=== PATIENT | male | born 1965 | race Two or more races ===

== ENCOUNTER 2024-12-24 10:18 | Inpatient (IN) | payer MEDICAID, SELFPAY ==
[2024-12-24] VITALS (11 sets, daily range): BP systolic 132–189; BP diastolic 74–119; PULSE 81–106; RESP 16–22; TEMP 36.2–37.1; O2SAT 92–99; BMI 32.3; BMI 34.7
--- NOTE | 2024-12-24 12:26 | XR_ITS ---
Examination: CT abdomen with intravenous contrast CT pelvis with intravenous contrast 2-D coronal reconstructions 2-D sagittal reconstructions Date and time of exam:December 24, 2024 1413 hours INDICATIONS: Right upper abdominal pain onset today. CTDI: vol (mGy) 10.3 DLP: (mGycm) 733 Technique: Multiple axial sections of the abdomen and pelvis have been obtained. 64 slice high-resolution scanner used. 3 mm axial sections have been obtained, post intravenous injection 60 cc [id number] 2-D sagittal, coronal reconstructions obtained. Low dose protocols were performed. One or more of the following dose reduction techniques were used; automated exposure control, adjustment of the mA and/or KV according to patient size, use of iterative reconstruction technique. Findings: No focal liver or splenic lesions Multiple gallstones Gallbladder wall appears thickened and edematous No pancreatic or adrenal mass No renal or ureteral calculi, no hydronephrosis Aorta normal size Normal appendix No bowel obstruction No bladder mass or bladder calculi Mild prostatomegaly Advanced degenerative disc disease L5-S1 IMPRESSION: Acute calculus cholecystitis
--- NOTE | 2024-12-24 12:27 | EDNOTE_ITS ---
ED Abdominal Pain RME/HPI General Chief Complaint: Abdominal Pain Stated complaint: RUQ ABD PAIN X 5 DAYS Time seen by provider: 12/24/24 12:40 Arrival date/time: 12/24/24 10:18 Source: patient Limitations: no limitations RME / HPI RME / HPI narrative: Patient is a 59-year-old male with a 6-day history of right side abdominal pain and distention. He has had no vomiting or diarrhea. No fevers or chills. No changes in urination. He states he has a history of hypertension no other chronic disease. Denies any history of diabetes. No sick contacts or recent antibiotic use. No recent traveling. Related Data Home Medications ?Medication ?Instructions ?Recorded ?Confirmed moxifloxacin 0.5 % eye drops 1 drp Both eyes QDAY 12/0312/26/24 Held on 12/26/24. Instructions: Doctor's Order prednisolone acetate 1 % eye 1 drp ophthalmic (eye) Q1 2H 12/25/24 12/26/24 drops,suspension Held on 12/26/24. Instructions: Doctor's Order amlodipine 5 mg tablet 5 mg PO QDAY 12/26/24 Previous Rx's ?Medication ?Instructions ?Recorded pantoprazole 40 mg tablet,delayed 40 mg PO QDAY #30 ta bs 11/11/18 release (Protonix) Allergies Allergy/AdvReac Type Severity Reaction Status Date / Time No Known Allergies Allergy Verified 12/24/24 21:32 Review of Systems Review of Systems Systems Reviewed: All systems reviewed, normal except as documented ED Exam General Limitations: Present no limitations General appearance: Present alert and in no apparent distress Head Head exam: Present atraumatic Eye Eye exam: Present normal appearance, PERRL and EOMI ENT ENT exam: Present normal exam, normal oropharynx and mucous membranes moist Neck Neck exam: Present normal inspection, full ROM and trachea midline Chest Chest inspection: Present normal inspection and symmetric chest wall rise Respiratory Respiratory exam: Present normal lung sounds bilaterally Cardiovascular Cardiovascular exam: Present regular rate, normal rhythm and normal heart sounds Abdominal Exam Abdominal exam: Present soft, distention and tenderness; Absent guarding or rebound Extremities Exam Extremities exam: Present normal inspection and full ROM Back Exam Back exam: Present normal inspection and full ROM Neurological Exam Neurological exam: Present alert and oriented X3 Psychiatric Psychiatric exam: Present normal affect and normal mood Skin Skin exam: Present warm, dry, intact and normal color Course Course Course Narrative: CT report was reviewed and there are concerns for acute cholecystitis. Dr. Ramirez with general surgery was contacted and asked to consult on the patient. He will see the patient in the ER. Quality Measures none Orders Category Date Time Status Admit to Inpatient Status Routine Admission 12/24/24 22:59 Active Patient Condition Routine Admission 12/24/24 17:27 Ordered Ambulate in [place] on 2nd Day Routine Care 12/24/24 22:59 Ordered Bed to Chair in A.M. Routine Care 12/24/24 22:59 Ordered COVID-19 Screening Questionnaire NOW Care 12/24/24 17:[address] Screening NOW Care 12/24/24 12:[address] Screening X1 Care 12/24/24 12:26 Completed Decision to Admit X1 Care 12/24/24 17:03 Completed Ice Chips NEEDED Care 12/24/24 22:59 Active Incentive Spirometry Treatment .q2h w/a Care 12/24/24 22:59 Completed Insert IV NOW Care 12/24/24 13:22 Completed Intake and Output Routine Care 12/24/24 22:59 Ordered Measure Drain Output QSHIFT Care 12/24/24 22:59 Completed Obtain Written Consent For: NOW Care 12/24/24 17:27 Completed Sequential Compression Device QSHIFT Care 12/24/24 22:59 Active Turn, Cough, and Deep Breathe NOW Care 12/24/24 22:[address] abdomen pelvis w con Stat Exams 12/24/24 12:26 Completed US abdomen limited Stat Exams 12/24/24 12:28 Completed CBC AM DRAW Lab 12/25/24 04:44 Completed CBC Stat Lab 12/24/24 12:38 Completed CMP [Comprehensive Metabolic Panel] Stat Lab 12/24/24 12:38 Completed Electrolytes AM DRAW Lab 12/25/24 04:44 Completed Lactic Acid [Lactate (Lactic Acid)] Stat Lab 12/24/24 12:38 Completed Lipase Stat Lab 12/24/24 12:38 Completed Liver Panel AM DRAW Lab 12/25/24 04:44 Completed UA, C/S IF [Urinalysis, C/S if Indicated] Stat Lab 12/24/24 17:49 Completed Acetaminophen Ivpb [Ofirmev Inj] 100 ml Med 12/24/24 18:29 Discontinued IV .STK-MED Acetaminophen Tab [Tylenol Tab] Med 12/24/24 22:59 Discontinued 650 mg PO Q6HR PRN Bupivacaine Mpf/Epi 0.5% [Sensorcaine-Mpf Inj 0.5% w/ Med 12/24/24 18:14 Discontinued Epi] 30 ml .ROUTE .STK-MED ONE Dexamethasone Inj [Decadron Inj] Med 12/24/24 18:15 Discontinued 10 mg .ROUTE .STK-MED ONE Esmolol HCl [Brevibloc Inj] Med 12/24/24 19:46 Discontinued 100 mg .ROUTE .STK-MED ONE Glycopyrrolate Inj [Robinul Inj] Med 12/24/24 20:56 Discontinued 1 mg .ROUTE .STK-MED ONE Ketorolac Inj [Toradol Inj] Med 12/24/24 22:59 Active 30 mg IVP Q6HR PRN Lidocaine Inj Pf 2% 2 ml [Xylocaine Inj Pf Inj 2% 2 ml] Med 12/24/24 18:29 Discontinued 2 ml .ROUTE .STK-MED ONE Meperidine Inj [Demerol Inj] Med 12/24/24 21:10 Discontinued 12.5 mg IVP Q5M PRN Metoprolol Tartrate Inj [Lopressor Inj] Med 12/24/24 21:10 Discontinued 1 mg IVP Q5M PRN Midazolam Inj [Versed Inj] Med 12/24/24 21:10 Discontinued 1 mg IVP Q5M PRN Morphine Inj Med 12/24/24 21:10 Discontinued 2 mg IVP Q10M PRN Morphine Inj Med 12/24/24 12:26 Discontinued 2 mg IVP X1 ONE Morphine Inj Med 12/24/24 22:59 Active 5 mg IVP Q4HR PRN Neostigmine Inj 1:1000 [Bloxiverz Inj 1:1000] Med 12/24/24 20:56 Discontinued 10 ml .ROUTE .STK-MED ONE Ondansetron Inj [Zofran Inj] Med 12/24/24 21:01 Discontinued 4 mg .ROUTE .STK-MED ONE Ondansetron Inj [Zofran Inj] Med 12/24/24 22:59 Active 4 mg IVP Q4HR PRN Ondansetron Inj [Zofran Inj] Med 12/24/24 21:10 Discontinued 4 mg IVP X1 PRN PHENYLEPHRINE INJ in NS [Chuy-synephrine Inj/Ns] Med 12/24/24 18:58 Discontinued 1,000 mcg .ROUTE .STK-MED ONE Piper/Tazo 3.375 gm Premix [Zosyn] Med 12/24/24 23:15 Active 3.375 gm in 50 ml IV Q8HR Piper/Tazo Inj [Zosyn Inj] 4.5 gm Med 12/24/24 17:30 Discontinued Sodium Chloride 0.9% (Pop) [NS 0.9% mini bag] 100 ml IV X1 Propofol Inj [Diprivan Inj] Med 12/24/24 18:15 Discontinued 200 mg IV .STK-MED ONE Rocuronium Inj [Zemuron Inj] Med 12/24/24 18:15 Discontinued 100 mg .ROUTE .STK-MED ONE Sodium Chloride 0.9% 1000 ml [Ns] 1,000 ml Med 12/24/24 22:59 Hold IV 125 mls/hr Sodium Chloride 0.9% 1000 ml [Ns] 1,000 ml Med 12/24/24 17:30 Discontinued IV 500 mls/hr Sodium Chloride 0.9% 1000 ml [Ns] 1,000 ml Med 12/24/24 17:34 Discontinued IV 999 mls/hr Vasopressin Inj [Vasostrict Inj] Med 12/24/24 19:19 Discontinued 20 unit .ROUTE .STK-MED ONE ePHEDrine SULF INJ Med 12/24/24 19:28 Discontinued 50 mg .ROUTE .STK-MED ONE fentaNYL INJ [Sublimaze Inj] Med 12/24/24 18:15 Discontinued 100 mcg .ROUTE .STK-MED ONE fentaNYL INJ [Sublimaze Inj] Med 12/24/24 19:13 Discontinued 100 mcg .ROUTE .STK-MED ONE fentaNYL INJ [Sublimaze Inj] Med 12/24/24 20:55 Discontinued 100 mcg .ROUTE .STK-MED ONE fentaNYL INJ [Sublimaze Inj] Med 12/24/24 21:10 Discontinued 50 mcg IVP Q5M PRN hydrALAZINE INJ [Apresoline Inj] Med 12/24/24 21:10 Discontinued 5 mg IVP Q20M PRN Code Status Routine Oth 12/24/24 17:27 Ordered EKG (RT) Stat RT 12/24/24 17:27 Draft Oxygen Delivery PRN RT 12/24/24 21:10 Active Transfer Order Routine Transfer 12/24/24 21:23 Completed Vital Signs Vital signs: Vital Signs Temperature 98.3 F 12/24/24 10:30 Pulse Rate 106 H 12/24/24 10:30 Respiratory Rate 18 12/24/24 10:30 Blood Pressure 189/119 H 12/24/24 10:30 Pulse Oximetry (%) 97 12/24/24 10:30 Oxygen Delivery Method Room Air 12/24/24 10:30 Abdominal Pain MDM MDM Narrative MDM Narrative:: Patient is a 59-year-old male with a 6-day history of right side abdominal pain and distention. He has had no vomiting or diarrhea. No fevers or chills. No changes in urination. He states he has a history of hypertension no other chronic disease. Denies any history of diabetes. No sick contacts or recent antibiotic use. No recent traveling. On exam patient is nontoxic-appearing and in no visible signs of distress. Vital signs are stable. He does have abdominal distention with diffuse tympany. There is mild tenderness diffusely. There is no guarding or masses. No peritoneal signs are present. Imaging indicates patient has acute cholecystitis. Patient was admitted to general surgery who took the patient to the operating room. Patient data External records reviewed:: None Clinical information provided by:: patient Social determinants that could affect healthcare access:: none Patient has the following chronic illnesses:: Hypertension How is presenting disease/condition affected by chronic disease/condition?: exacerbated by Evaluation data The following diagnostics were reviewed and interpreted by me:: lab results (No leukocytosis or anemia. AST is elevated at 40, ALT is 73, alk phos is unremarkable. Lipase is unremarkable. Urinalysis is unremarkable.) and radiology exam(s) (CT of the abdomen and ultrasound are concerning for possible cholecystitis.) Lab and/or radiology exams considered but not ordered:: n/a Interpretation Summary: Hypertension, cholecystitis Medications / Prescriptions Medications or Prescriptions considered but not ordered:: n/a Medication administrations:: Medication Administration History Acetaminophen (Acetaminophen 325 Mg Tablet) 650 mg PO Q6HR PRN PRN Reason: FEVER>101.5 Stop: 01/23/25 22:58 Amlodipine Besylate (Amlodipine Besylate 5 Mg Tablet) 10 mg PO QDAY SHASTA Stop: 01/26/25 08:59 Last Admin: 12/27/24 08:38 Dose: 10 mg Documented By: DEBRA Sodium Chloride (Ns) 1,000 mls @ 125 mls/hr IV .Q8H SHASTA Stop: 01/23/25 22:58 Last Admin: 12/26/24 06:20 Dose: 125 mls/hr Documented By: Infusion: 12/26/24 06:00 Dose: Infused Documented By: Admin: 12/25/24 22:00 Dose: 125 mls/hr Documented By: Infusion: 12/25/24 22:00 Dose: Infused Documented By: Admin: 12/25/24 14:25 Dose: 125 mls/hr Documented By: Infusion: 12/25/24 14:25 Dose: Infused Documented By: Admin: 12/25/24 06:26 Dose: 125 mls/hr Documented By: Infusion: 12/25/24 06:26 Dose: Infused Documented By: Admin: 12/24/24 23:25 Dose: 125 mls/hr Documented By: JOSHUA Piperacillin/Tazobactam/Dextrose (Zosyn) 3.375 gm in 50 mls @ 12.5 mls/hr IV Q8HR SHASTA; Protocol Stop: 12/31/24 23:14 Last Admin: 12/27/24 05:08 Dose: 12.5 mls/hr Documented By: Infusion: 12/27/24 02:13 Dose: Infused Documented By: Admin: 12/26/24 22:13 Dose: 12.5 mls/hr Documented By: Infusion: 12/26/24 18:57 Dose: Infused Documented By: Admin: 12/26/24 14:57 Dose: 12.5 mls/hr Documented By: Infusion: 12/26/24 09:19 Dose: Infused Documented By: Admin: 12/26/24 05:19 Dose: 12.5 mls/hr Documented By: Infusion: 12/26/24 01:50 Dose: Infused Documented By: Admin: 12/25/24 21:50 Dose: 12.5 mls/hr Documented By: Infusion: 12/25/24 18:22 Dose: Infused Documented By: Admin: 12/25/24 14:22 Dose: 12.5 mls/hr Documented By: Infusion: 12/25/24 09:13 Dose: Infused Documented By: Admin: 12/25/24 05:13 Dose: 12.5 mls/hr Documented By: Infusion: 12/25/24 03:25 Dose: Infused Documented By: Admin: 12/24/24 23:25 Dose: 12.5 mls/hr Documented By: JOSHUA Dextrose/Sodium Chloride (D5-Ns) 1,000 mls @ 80 mls/hr IV .[id number] [facility] Stop: 01/25/25 11:14 Last Admin: 12/27/24 02:33 Dose: 80 mls/hr Documented By: Infusion: 12/27/24 02:33 Dose: Infused Documented By: Admin: 12/26/24 15:03 Dose: 80 mls/hr Documented By: Ketorolac Tromethamine (Ketorolac Inj 30 Mg/Ml Vial) 30 mg IVP Q6HR PRN; Protocol PRN Reason: PAIN 1-6 (mild-mod Stop: 12/29/24 22:58 Last Admin: 12/26/24 05:17 Dose: 30 mg Documented By: SAMANTHA Morphine Sulfate (Morphine Sulf Inj 10 Mg/Ml Vial) 5 mg IVP Q4HR PRN; Protocol PRN Reason: PAIN SCALE 4-6 (Moderate Stop: 12/29/24 22:58 Last Admin: 12/25/24 17:01 Dose: 5 mg Documented By: Ondansetron HCl (Ondansetron Inj 2 Mg/Ml Inj 2 Ml) 4 mg IVP Q4HR PRN PRN Reason: NAUSEA OR VOMITING Stop: 01/23/25 22:58 Last Admin: 12/25/24 16:55 Dose: 4 mg Documented By: Discontinued Medications Acetaminophen (Acetaminophen 325 Mg Tablet) 650 mg PO Q6HR PRN PRN Reason: [id number] Stop: 01/23/25 22:58 Amlodipine Besylate (Amlodipine Besylate 5 Mg Tablet) 5 mg PO QDAY [facility] Stop: 01/25/25 08:59 Last Admin: 12/26/24 08:47 Dose: 5 mg Documented By: Amlodipine Besylate (Amlodipine Besylate 2.5 Mg Tablet) 2.5 mg PO X1 ONE Stop: 12/26/24 12:00 Last Admin: 12/26/24 12:29 Dose: 2.5 mg Documented By: Amlodipine Besylate (Amlodipine Besylate 2.5 Mg Tablet) 2.5 mg PO X1 ONE Stop: 12/26/24 20:19 Last Admin: 12/26/24 20:31 Dose: 2.5 mg Documented By: GUANAKO Amlodipine Besylate (Amlodipine Besylate 5 Mg Tablet) 5 mg PO BID SHASTA Stop: 01/26/25 08:59 Bupivacaine HCl/Epinephrine Bitart (Bupivacaine Mpf/Epi 0.5% 30 Ml Vial 1:200,000) Confirm Administered Dose 30 ml .ROUTE .STK-MED ONE Stop: 12/24/24 18:15 Dexamethasone Sodium Phosphate (Dexamethasone Sod Phos Inj 10 Mg/Ml Vial) Confirm Administered Dose 10 mg .ROUTE .STK-MED ONE Stop: 12/24/24 18:16 Ephedrine Sulfate (Ephedrine Sulf Inj 50 Mg/Ml Vial) Confirm Administered Dose 50 mg .ROUTE .STK-MED ONE Stop: 12/24/24 19:29 Esmolol HCl (Esmolol Inj 10 Mg/Ml Vial 10 Ml) Confirm Administered Dose 100 mg .ROUTE .STK-MED ONE Stop: 12/24/24 19:47 Fentanyl Citrate (Fentanyl Cit Inj 50 Mcg/Ml Amp 2ml) Confirm Administered Dose 100 mcg .ROUTE .STK-MED ONE Stop: 12/24/24 18:16 Fentanyl Citrate (Fentanyl Cit Inj 50 Mcg/Ml Amp 2ml) Confirm Administered Dose 100 mcg .ROUTE .STK-MED ONE Stop: 12/24/24 19:14 Fentanyl Citrate (Fentanyl Cit Inj 50 Mcg/Ml Amp 2ml) Confirm Administered Dose 100 mcg .ROUTE .STK-MED ONE Stop: 12/24/24 20:56 Fentanyl Citrate (Fentanyl Cit Inj 50 Mcg/Ml Amp 2ml) 50 mcg IVP Q5M PRN PRN Reason: PAIN SCALE 4-10(Mod-Sev Last Admin: 12/24/24 21:57 Dose: 50 mcg Documented By: FERNANDA Glycopyrrolate (Glycopyrrolate Inj 0.2 Mg/Ml Vial 5 Ml) Confirm Administered Dose 1 mg .ROUTE .STK-MED ONE Stop: 12/24/24 20:57 Hydralazine HCl (Hydralazine Inj 20 Mg/Ml Vial) 5 mg IVP Q20M PRN PRN Reason: SEE COMMENTS Sodium Chloride (Ns) 1,000 mls @ 500 mls/hr IV .Q2H SHASTA Stop: 01/23/25 17:29 Piperacillin Sod/Tazobactam (Sod 4.5 gm/ Sodium Chloride) 100 mls @ 200 mls/hr IV X1 ONE Stop: 12/24/24 17:59 Last Admin: 12/24/24 17:42 Dose: 200 mls/hr Documented By: DB Sodium Chloride (Ns) 1,000 mls @ 999 mls/hr IV .Q1H1M ONE Stop: 12/24/24 18:34 Last Admin: 12/24/24 17:43 Dose: 999 mls/hr Documented By: JUANA Acetaminophen (Ofirmev Inj) Confirm Administered Dose 100 mls @ ud IV .STK-MED ONE Stop: 12/24/24 18:30 Labetalol HCl (Labetalol Inj 5 Mg/Ml Vial 20 Ml) 10 mg IVP X1 ONE Stop: 12/26/24 05:05 Lidocaine HCl (Lidocaine Inj Pf 2% 2 Ml Vial) Confirm Administered Dose 2 ml .ROUTE .STK-MED ONE Stop: 12/24/24 18:30 Meperidine HCl (Meperidine Inj 50 Mg/Ml Vial) 12.5 mg IVP Q5M PRN PRN Reason: SHIVERING Stop: 12/29/24 21:09 Metoprolol Tartrate (Metoprolol Tartrate Inj 1 Mg/Ml Amp 5 Ml) 1 mg IVP Q5M PRN PRN Reason: TACHYCARDIA Stop: 12/25/24 21:09 Midazolam HCl (Midazolam Inj 1 Mg/Ml Vial 2 Ml) 1 mg IVP Q5M PRN PRN Reason: ANXIETY Stop: 12/25/24 21:09 Morphine Sulfate (Morphine Sulf Inj 10 Mg/Ml Vial) 2 mg IVP X1 ONE Stop: 12/24/24 12:27 Last Admin: 12/24/24 13:21 Dose: 2 mg Documented By: JUANA Morphine Sulfate (Morphine Sulf Inj 10 Mg/Ml Vial) 2 mg IVP Q10M PRN PRN Reason: PAIN SCALE 4-10(Mod-Sev Neostigmine Methylsulfate (Neostigmine Inj 1:1000 10 Ml Vial) Confirm Administered Dose 10 ml .ROUTE .STK-MED ONE Stop: 12/24/24 20:57 Ondansetron HCl (Ondansetron Inj 2 Mg/Ml Inj 2 Ml) Confirm Administered Dose 4 mg .ROUTE .STK-MED ONE Stop: 12/24/24 21:02 Ondansetron HCl (Ondansetron Inj 2 Mg/Ml Inj 2 Ml) 4 mg IVP X1 PRN PRN Reason: NAUSEA OR VOMITING Phenylephrine HCl (Phenylephrine Inj In Ns 100 Mcg/Ml 10 Ml Syringe) Confirm Administered Dose 1,000 mcg .ROUTE .STK-MED ONE Stop: 12/24/24 18:59 Propofol (Propofol Inj 10 Mg/Ml Vial 20 Ml) Confirm Administered Dose 200 mg IV .STK-MED ONE Stop: 12/24/24 18:16 Rocuronium Hagerman (Rocuronium Inj 10 Mg/Ml Vial 10 Ml) Confirm Administered Dose 100 mg .ROUTE .STK-MED ONE Stop: 12/24/24 18:16 Vasopressin (Vasopressin Inj 20 Unit/Ml Vial) Confirm Administered Dose 20 unit .ROUTE .STK-MED ONE Stop: 12/24/24 19:20 See above Consultations Consultation(s) initiated? (list below): Yes Diagnosis Differential diagnosis abdominal pain: calculus of kidney, gastroenteritis, pancreatitis and small bowel obstruction Most likely diagnosis given after review of the tests above:: Acute cholecystitis Admission Indicated Admission indicated?: indicated Admission Request Was there a request for admission?: Yes Admission Attestation Admission request attestation: Discussed case with [] from Hospitalist service regarding admission. Discussed patients ED course, exam findings, labs, and radiology results. The Hospitalist [agrees,declines] to accept the patient for admission. Disposition Plan Disposition Plan: Admit Discharge Plan Plan Patient Disposition: Other Care w/in Hosp ([facility]) Problem List Clinical Impression: Acute cholecystitis
--- NOTE | 2024-12-24 12:28 | XR_ITS ---
Examination: Abdomen sonogram, Limited Date and time of exam: December 24, 2024 1236 hours INDICATIONS: Right upper abdominal pain beginning 5 days ago Technique: Real-time moseley scale transabdominal sonographic images of the upper abdomen obtained. Findings: Multiple gallstones Gallbladder wall 0.50 cm Common bile duct 0.3 cm Pancreatic head 3.4 cm Liver 13.7 cm fatty infiltration no focal liver lesions Normal hepatopedal portal venous flow Patent IVC IMPRESSION: Cholelithiasis Abnormally thickened gallbladder wall 0.50 cm Consider HIDA scan or MRCP follow-up to exclude cystic duct obstruction
[2024-12-24 13:01] LABS: Lactate (Lactic Acid) 1.7 mMol/L (0.4-2.0)
[2024-12-24 13:06] LABS: Basophils # (Auto) 0.1 Thou/mm3 (0.0-0.2); Basophils % (Auto) 1 % (0-2.5); Eosinophils # (Auto) 0.1 Thou/mm3 (0.0-0.5); Eosinophils % (Auto) 1 % (0-10); Hematocrit 43.9 % (41.0-53.0); Hemoglobin 15.3 g/dL (13.5-16.0); Immature Granulocytes Auto 0.09 Thou/mm3 (0.00-0.00); Lymphocytes # (Auto) 1.7 Thou/mm3 (1.0-4.8); Lymphocytes % (Auto) 17 % (10-50); Mean Corpuscular HGB Conc 34.9 g/dl (31.0-37.0); Mean Corpuscular Hemoglobin 29.1 pg (25.0-35.0); Mean Corpuscular Volume 84 fL (80-100); Monocytes # (Auto) 0.8 Thou/mm3 (0.0-0.8); Monocytes % (Auto) 7 % (0-12); Neutrophils # (Auto) 7.6 Thou/mm3 (1.8-7.7); Neutrophils % (Auto) 73 % (37-80); Nucleated Red Blood Cell # 0.00 Thou/mm3 (0.00-0.00); Nucleated Red Blood Cell % 0 /100 WBC (0); Platelet Count 245 Thou/mm3 (140-440); RDW Standard Deviation 39.8 fL (35.1-43.9); Red Blood Count 5.26 Miln/mm3 (4.50-5.90); White Blood Count 10.4 Thou/mm3 (3.8-10.6)
[2024-12-24] MEDS: MORPHINE SULF INJ 10 MG/ML VIAL 2 MG IVP (13:21)
[2024-12-24 13:25] LABS: Alanine Aminotransferase 73 U/L (10-49); Albumin, Serum 4.5 gm/dL (3.4-4.8); Albumin/Globulin Ratio 1.5 (1.2-2.2); Alkaline Phosphatase 101 U/L (46-116); Anion Gap 10 (7-16); Aspartate Amino Transferase 40 U/L (0-34); BUN/Creatinine Ratio 16 Ratio (12-20); Bilirubin,Total 0.6 mg/dL (0.3-1.2); Blood Urea Nitrogen 14 mg/dL (9-23); Calcium 9.1 mg/dL (8.3-10.6); Calcium (Corrected) 9.1 mg/dL (8.5-10.1); Carbon Dioxide 27.2 mMol/L (20.0-31.0); Chloride 101 mMol/L (98-107); Creatinine (Component) 0.9 mg/dL (0.6-1.3); Estimated Creatinine Clearance 103.2 mL/min (>60); Globulin 3.0 gm/dL (2.3-3.5); Glucose 105 mg/dL (74-106); Lipase 36 U/L (12-53); Osmolality,Calculated 276 (275-295); Potassium 4.1 mMol/L (3.4-5.1); Sodium 138 mMol/L (136-145); Total Protein 7.5 gm/dL (5.7-8.2); eGFR > 60 See Note
--- NOTE | 2024-12-24 17:27 | EKG_ITS ---
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
[2024-12-24] MEDS: PIPER/TAZO INJ 4.5 GM in SODIUM CHLORIDE 0.9% (POP) 100 ML IV (17:42)
[2024-12-24] MEDS: SODIUM CHLORIDE 0.9% 1000 ML 1,000 ML 999 ML IV (17:43)
[2024-12-24 17:57] LABS: Collection Type, Urine Voided
[2024-12-24 18:03] LABS: Bilirubin,Urine Negative (Negative); Blood,Urine Negative (Negative); Clarity,Urine Clear (Clear/Hazy); Color,Urine Lt-Yellow (Lt Yel-Yel); Culture Indicated,Urine Not Indicated; Glucose, Urine Negative (Negative); Ketones,Urine Negative (Negative); Leukocyte Esterase,Urine Positive (Negative); Nitrite,Urine Negative (Negative); PH,Urine 7.5 (5.0-7.0); Protein,Urine Negative (Neg - Trace); RBC,Urine 6 /hpf (0-3); Squamous Epithelial Cell,Urine 1 /hpf (0-5); Urobilinogen,Urine Negative mg/dL (0.0-1.0); WBC,Urine 4 /hpf (0-5)
[2024-12-24 18:07] LABS: Specific Gravity,Urine > 1.035 (1.001-1.035)
--- NOTE | 2024-12-24 18:52 | ESHP_ITS ---
HPI Date of Admission 12/24/24 17:27 Chief Complaint Chief Complaint: The patient is admitted with the complaints of acute calculus cholecystitis HPI History of present illness revealed that the patient was in his usual health until a week ago when he started having pain over the right side of the abdomen. He denies any vomiting but is not been feeling good. But he has been working and does not bother to see a doctor. He does not go to your doctor. He has history of hypertension. Because of the increasing pain he came to the emergency room and was found to have acute cholecystitis with cholelithiasis. Patient denies any major medical problems in the past and has been reasonably healthy. He lives alone. He denies any history of fever or jaundice or chills. He has noticed a diarrhea in the past few days. Per surgery consent of some eye surgery probably cataract Past Medical History Past Medical History CARDIAC: Positive Hypertension; Negative Cardiac Disorders or Congestive Heart Failure RESPIRATORY: Negative Chronic Obstructive Pulmonary Disease (COPD) or Asthma GENITOURINARY: Negative Renal Disease ENDOCRINE: Negative Diabetes Mellitus Type 1 or Diabetes Mellitus Type 2 HEMATOLOGIC: Negative Sickle Cell Disease Social History SMOKING STATUS: Former smoker Meds Home Medications and Allergies Allergies Allergy/AdvReac Type Severity Reaction Status Date / Time No Known Allergies Allergy Verified 12/24/24 10:21 Exam Vital Signs Temp Pulse Resp BP Pulse Ox O2 Del Method 98.7 F 81 18 152/93 H 97 Room Air 12/24/24 16:05 12/24/24 16:05 12/24/24 16:05 12/24/24 16:05 12/24/24 16:05 12/24/24 16:05 Narrative Exam Physical examination revealed an obese male who speaks some Georgian. He is 5 foot 10 inches tall weighing 225 pounds with BMI of 32.3. His vital signs are normal Constitutional Constitutional: moderate distress Routine Abdominal Exam Comments: Examination abdomen showed a definite tenderness over the right upper quadrant. Patient's abdomen is protuberant because of his obesity. Patient has a positive Sauer sign Routine Rectal Exam Comments: Deferred Routine Exam Comments: Deferred Routine Extremities Exam Comments: Within normal limits Routine Skin Exam Comments: Within normal limits Results Results: Laboratory Laboratory Narrative: Patient's laboratory workup showed normal WBC and normal liver enzymes with mild elevation Results: Imaging Imaging narrative: CT scan of the abdomen showed acute cholecystitis. The gallbladder wall is thickened and edematous ultrasound confirmed cholelithiasis. The gallbladder wall measures 5 mm. Additional studies: Impression: Acute calculus cholecystitis Hypertension Obesity Assessment & Plan Additional Assessment Additional comments: Impression: Acute calculus cholecystitis Hypertension Obesity Plan Plan: Patient has the following signs for acute cholecystitis: #1 he has edematous gallbladder that is distended on the CT scan #2 gallbladder wall is thickened to 5 mm on the ultrasound but stones #3 considerable clinical tenderness over the right upper quadrant with a positive Sauer sign. Because of these conditions I advised laparoscopic cholecystectomy or open cholecystectomy. The risk of the procedure was discussed with the patient and his daughters and they mentioned that he can have a bleeding injury to the bile duct or bile leakage from the liver surface etc. patient also may require open cholecystectomy in case the laparoscopic approach fails. They understand and wants to go with surgery which is planned tonight. Quality Measures Quality Measures VTE prophylaxis
--- NOTE | 2024-12-24 20:47 | SUR.OPER ---
2045: Call placed to jamaica Yaneli to provide update.
--- NOTE | 2024-12-24 21:27 | SUR.PHASEI ---
received pt and report from Dr. Peterson and RN Ángela. IV intact no s/s of infiltration. Dressing x4 to abd w/ 2x2 gauze w/ medipore tape w/ a 19F LEONORA drain. no drainage noted to drain at this time. abdomen distended
--- NOTE | 2024-12-24 21:28 | PD.SUROPNT ---
Date of Procedure 12/24/24 Pre Op Diagnosis Acute calculus cholecystitis Post Op Diagnosis Same with extensive inflammation and adhesion Procedure Laparoscopic cholecystectomy Findings Patient was found to have a multiple gallstones which were packing the gallbladder which was very much inflamed and showed extensive thickening of the gallbladder wall Procedure Description After endotracheal anesthesia was given the patient was placed in supine position and the abdomen was prepped with chloroprep solution and draped in a sterile manner. After time out was performed I injected a few cc of of half percent Marcaine with epinephrine below the umbilicus and I made an incision for about 3 cm in length. The fascia was cleaned and Veress needle was inserted to create a pneumoperitoneum up to 15 mmHg. Then introduced a 12 mm trocar and a 10 mm camera through the fascia and I inspected the intra-abdominal organs as well as the gallbladder and the liver. Another 5 mm trocar was inserted in the epigastric region under direct vision after injecting some local anesthesia. At this time the patient was kept in reverse Trendelenburg position with the left lateral tilt. The third 5 mm trocar was inserted over the mid axillary line under direct vision and a Corby and Jackie grasper was used to hold the fundus of the gallbladder gallbladder was distended and it was aspirated some bile before it could be grasped.. The retraction was carried out by the golf player assistant moving the fundus of the gallbladder towards the right shoulder of the patient to create enough traction. I placed a another 5 mm trocar in the midaxillary line just lateral to the rectus muscle under direct vision. I used a fenestrated grasper to retract the neck of the gallbladder laterally towards the patient's right hip. critical view of safety could not be identified because of the extensive inflammation. After dissecting the neck of the gallbladder I was able to see the cystic duct which appeared normal and clipped and doubly. I changed the 5 mm trocar in the epigastric region to 10 mm port and applied a large clip applicator to secure this. Then I realized removal of the gallbladder from the liver bed would be extremely hazardous due to extensive inflammation and bleeding. I decided to open the gallbladder and remove all the stones one by one which was a laborious procedure. This way I avoided dissection of the gallbladder bed. There was extensive inflammation and bleeding all around the dissection. I left the posterior wall of the gallbladder intact. I removed all the stones and debris's and did a basically subtotal cholecystectomy except for the posterior wall of the gallbladder. The common duct was not seen distally but no dissection was carried out around the duct. The cystic duct was clipped doubly and then divided a Then the gallbladder was removed from the liver bed using Harmonic fredy to control the small blood vessels as the dissection proceeded. There was an arterial bleeding from the gallbladder wall which probably is what the cystic artery was. This was clipped doubly then the portion of the gallbladder was and dissected out using harmonic fredy. Then the gallbladder bed was coagulated with cautery gallbladder and the mucosa the liver bed was coagulated with cautery to obtain satisfactory hemostasis. I applied both Surgicel and Surgicel powder to obtain hemostasis because of fair amount of bleeding that I encountered. I also left a #19 Tamazight Jona-Varner under the liver and brought it out through the trocar site and anchored to the skin with 2-0 silk. The trocars were pulled out from the abdominal cavity and the fascia at the umbilical incision was closed with interrupted 0 Ethibond. The epigastric incision also was closed with 0 Ethibond. Subcutaneous tissues was closed with 3-0 chromic and injected a few cc of half percent Marcaine with epinephrine and the skin was closed with interrupted 4-0 nylon stitches at all the trocar sites. Dressing was applied with 2 x 2 and Tegaderm. Patient tolerated the procedure well and returned to recovery room in stable condition. Anesthesia GETA Pathology / specimen Other (Gallbladder and the stones) IVF Infused 1,200 Estimated Blood Loss 300 Condition Stable Disposition PACU Surgeon Deb Ramirez MD Surgical Staff Operation Date: 12/24/24 19:15 Case Staff Anesthesiologist: Grabiel Peterson RNcustomer facilities supervisor: Vivi Hidalgo
--- NOTE | 2024-12-24 21:50 | SUR.PHASEI ---
pt c/o 12/11 pain, no distress noted, vss.
[2024-12-24] MEDS: fentaNYL CIT INJ 50 mCg/ML AMP 2ML IVP (21:57)
--- NOTE | 2024-12-24 22:04 | SUR.PHASEI ---
pt resting, no distress noted, pt arousable to voice, vss, dressing remains CDI, iv intact, no s/s of infiltration noted. report given to BRIANNE Singleton
[2024-12-24] MEDS: SODIUM CHLORIDE 0.9% 1000 ML 1,000 ML 125 ML IV (23:25)
[2024-12-24] MEDS: PIPER/TAZO 3.375 GM PREMIX 3.375 GM/50 ML BAG IV (23:25)
[2024-12-25] VITALS (9 sets, daily range): BP systolic 127–163; BP diastolic 72–97; PULSE 74–93; RESP 16–20; TEMP 36.1–36.9; O2SAT 91–98
[2024-12-25] MEDS: PIPER/TAZO 3.375 GM PREMIX 3.375 GM/50 ML BAG IV ×3 (05:13→21:50)
[2024-12-25] MEDS: SODIUM CHLORIDE 0.9% 1000 ML 1,000 ML 125 ML IV ×3 (06:26→22:00)
[2024-12-25 06:27] LABS: Basophils # (Auto) 0.0 Thou/mm3 (0.0-0.2); Basophils % (Auto) 0 % (0-2.5); Eosinophils # (Auto) 0.0 Thou/mm3 (0.0-0.5); Eosinophils % (Auto) 0 % (0-10); Hematocrit 39.3 % (41.0-53.0); Hemoglobin 13.4 g/dL (13.5-16.0); Immature Granulocytes Auto 0.11 Thou/mm3 (0.00-0.00); Lymphocytes # (Auto) 0.9 Thou/mm3 (1.0-4.8); Lymphocytes % (Auto) 9 % (10-50); Mean Corpuscular HGB Conc 34.1 g/dl (31.0-37.0); Mean Corpuscular Hemoglobin 29.4 pg (25.0-35.0); Mean Corpuscular Volume 86 fL (80-100); Monocytes # (Auto) 0.5 Thou/mm3 (0.0-0.8); Monocytes % (Auto) 6 % (0-12); Neutrophils # (Auto) 7.8 Thou/mm3 (1.8-7.7); Neutrophils % (Auto) 84 % (37-80); Nucleated Red Blood Cell # 0.00 Thou/mm3 (0.00-0.00); Nucleated Red Blood Cell % 0 /100 WBC (0); Platelet Count 261 Thou/mm3 (140-440); RDW Standard Deviation 41.4 fL (35.1-43.9); Red Blood Count 4.56 Miln/mm3 (4.50-5.90); White Blood Count 9.3 Thou/mm3 (3.8-10.6)
[2024-12-25 06:51] LABS: Alanine Aminotransferase 243 U/L (10-49); Albumin, Serum 3.9 gm/dL (3.4-4.8); Alkaline Phosphatase 214 U/L (46-116); Anion Gap 12 (7-16); Aspartate Amino Transferase 315 U/L (0-34); Bilirubin,Direct 1.5 mg/dL (0.0-0.3); Bilirubin,Total 2.2 mg/dL (0.3-1.2); Carbon Dioxide 24.3 mMol/L (20.0-31.0); Chloride 103 mMol/L (98-107); Potassium 4.4 mMol/L (3.4-5.1); Sodium 139 mMol/L (136-145); Total Protein 6.6 gm/dL (5.7-8.2)
--- NOTE | 2024-12-25 11:24 | ESPR_ITS ---
Documentation for date of: 12/25/24 Subjective Subjective Brief History: History of present illness revealed that the patient was in his usual health until a week ago when he started having pain over the right side of the abdomen. He denies any vomiting but is not been feeling good. But he has been working and does not bother to see a doctor. He does not go to your doctor. He has history of hypertension. Because of the increasing pain [facility] and was found to have acute cholecystitis with cholelithiasis. Patient denies any major medical problems in the past and has been reasonably healthy. He lives alone. He denies any history of fever or jaundice or chills. He has noticed a diarrhea in the past few days. Per surgery consent of some eye surgery probably cataract Narrative: The patient is doing reasonably well following difficult cholecystectomy for extensive inflammation Exam Vital Signs Temp Pulse Resp BP Pulse Ox O2 Del Method O2 Flow Rate 98.4 F 82 16 132/75 H 98 Nasal Cannula 2 12/25/24 07:45 12/25/24 07:45 12/25/24 07:45 12/25/24 07:45 12/25/24 07:45 12/25/24 07:45 12/25/24 07:45 His vital signs are normal Routine Abdominal Exam Comments: Abdominal examination is negative there is very minimal drainage in the Jona- Varner Results Results: Laboratory Laboratory Narrative: Patient's laboratory results show elevated bilirubin and transaminases possibly secondary to surgery or possible common bile duct stone Assessment & Plan Assessment Additional comments: Impression: Stable postoperative course following acute cholecystectomy Plan Plan: We shall watch see liver enzymes monitor at PROCEDURES: Procedures Laparoscopic cholecystectomy
--- NOTE | 2024-12-25 12:30 | PC.NURSE ---
extensive abdominal extension noted on pt made md Carver aware over the phone per MD will order xray to evaluate.
--- NOTE | 2024-12-25 12:58 | PC.SS ---
Patient Parker Conner is a 59 Year old male admitted for Acute Cholecystitis Requiring ABX. SS met with patient at bedside to discuss discharge plan and verify demographic information. Patient reports he lives at home alone. Patient reports his surrogate decision maker is his daughter, Keyonna Conner [phone]. Choice of pharmacy is [facility]. Patient reports he does not have a PCP. prior to being admitted patient did not utilize any source of DME, patient is able to complete all ADL's independently. At time of discharge patient will return back home, family will provide transportation. Next of kin: Daughter, Keyonna Conner [phone] Discharge Plan: Home
--- NOTE | 2024-12-25 15:16 | XR_ITS ---
Examination: Abdomen AP single view Technique: AP portable supine abdomen, single view Exam date and time: December 25, 2024 1530 hours INDICATIONS: Abdominal distention today. FINDINGS: Mildly air distended stomach Numerous air distended small bowel loops Surgical clips upper right abdomen IMPRESSION: Small bowel ileus versus early small bowel obstruction, clinical correlation advised
--- NOTE | 2024-12-25 16:53 | XR_ITS ---
Examination: AP chest single view Technique one AP portable upright chest single view Date and time: December 25, 2024, 1726 hours INDICATIONS: Post orogastric tube placement FINDINGS: Orogastric tube tip in stomach satisfactory position Mild to moderate enlargement left ventricle Fat-pad at the left cardiophrenic angle No pulmonary edema IMPRESSION: Orogastric tube tip in the stomach satisfactory position
[2024-12-25] MEDS: ONDANSETRON INJ 2 MG/ML INJ 2 ML 4 MG IVP (16:55)
[2024-12-25] MEDS: MORPHINE SULF INJ 10 MG/ML VIAL 5 MG IVP (17:01)
[2024-12-26] VITALS (12 sets, daily range): BP systolic 150–175; BP diastolic 89–110; PULSE 89–103; RESP 16–93; TEMP 36.1–37.1; O2SAT 92–97
[2024-12-26] MEDS: KETOROLAC INJ 30 MG/ML VIAL IVP (05:17)
[2024-12-26] MEDS: PIPER/TAZO 3.375 GM PREMIX 3.375 GM/50 ML BAG IV ×3 (05:19→22:13)
[2024-12-26] MEDS: SODIUM CHLORIDE 0.9% 1000 ML 1,000 ML 125 ML IV (06:20)
[2024-12-26 06:25] LABS: Basophils # (Auto) 0.1 Thou/mm3 (0.0-0.2); Basophils % (Auto) 1 % (0-2.5); Eosinophils # (Auto) 0.1 Thou/mm3 (0.0-0.5); Eosinophils % (Auto) 1 % (0-10); Hematocrit 39.1 % (41.0-53.0); Hemoglobin 12.9 g/dL (13.5-16.0); Immature Granulocytes Auto 0.24 Thou/mm3 (0.00-0.00); Lymphocytes # (Auto) 1.9 Thou/mm3 (1.0-4.8); Lymphocytes % (Auto) 20 % (10-50); Mean Corpuscular HGB Conc 33.0 g/dl (31.0-37.0); Mean Corpuscular Hemoglobin 29.0 pg (25.0-35.0); Mean Corpuscular Volume 88 fL (80-100); Monocytes # (Auto) 0.9 Thou/mm3 (0.0-0.8); Monocytes % (Auto) 10 % (0-12); Neutrophils # (Auto) 6.1 Thou/mm3 (1.8-7.7); Neutrophils % (Auto) 66 % (37-80); Nucleated Red Blood Cell # 0.00 Thou/mm3 (0.00-0.00); Nucleated Red Blood Cell % 0 /100 WBC (0); Platelet Count 281 Thou/mm3 (140-440); RDW Standard Deviation 43.4 fL (35.1-43.9); Red Blood Count 4.45 Miln/mm3 (4.50-5.90); White Blood Count 9.3 Thou/mm3 (3.8-10.6)
[2024-12-26 07:05] LABS: Alanine Aminotransferase 196 U/L (10-49); Albumin, Serum 3.8 gm/dL (3.4-4.8); Alkaline Phosphatase 197 U/L (46-116); Aspartate Amino Transferase 102 U/L (0-34); Bilirubin,Direct 0.3 mg/dL (0.0-0.3); Bilirubin,Total 0.7 mg/dL (0.3-1.2); Total Protein 6.5 gm/dL (5.7-8.2)
--- NOTE | 2024-12-26 07:07 | PC.NURSE ---
Addendum entered by Kathy Moscoso RN 12/26/24 07:20: 12/26/2024 0455 PAIN 6 OUT OF 0/10 AT TIME OF ELEVATED BP 12/26/2024 0645 PAIN IS 0 0/10 Original Note: 12/26/[address] VEGA MADE AWARE OF PATIENT BLOOD PRESSURE RANGING IN THE 150'S /170'S'S, INFORMED MD PATIENT IN PAIN 6 OUT 1/10 ON PAIN SCALE, NO NEW ORDERS AT THIS TIME, MD STATES HE WILL COME TO UNIT AND ASSESS PATIENT.
--- NOTE | 2024-12-26 08:06 | PC.NURSE ---
Notified MD Mueller of current adult consult by MD Carver for hypertension as well as current bp this morning of 175/103-93
--- NOTE | 2024-12-26 11:10 | PD.RESCONSUL ---
HPI Data of Consult Requesting Physician: Deb Ramirez MD Admitting Provider: Deb Ramirez MD Attending Provider: Deb Ramirez MD Primary Care Provider: Physician No Primary/Family Consult Narrative History of present illness: Parker Conner is a 59 yo male with PMHx of hypertension and prior cholecystitis who is s/p cholecystectomy POD 2 and is being hospitalized for recovery after surgery and regain of bowel function. Internal medicine team was consulted for the management of stage 2 hypertension. Per daughter, patient is on home amlodopine 5mg which takes his BP down quickly. Patient denies symptoms associated with hypertension including headaches, chest pain, palpitations, epistaxis, blurry vision, tinnitus, difficulty breathing. cc:: cc: Deb Ramirez MD Review of Systems Review of Systems Narrative Review of Systems: General: Alert and oriented x3, No apparent distress. Skin: Intact, Warm, no rashes. HEENT: Normocephalic, Atraumatic. Normal neck range of motion, Supple. Trachea midline. Respiratory: Lungs are clear to auscultation, Breath sounds are equal bilaterally with equal chest expansion. Cardiovascular: RRR, normal S1, S2, No murmurs. Distal pulses 2+ Abdomen: Abdomen distended, soft, without erythema, or lesions. Diminished bowel sounds. Percussion tympanic. Palpation nontender in all four quadrants. No organomagely. No guarding or rebound present. Musculoskeletal/Extremities: No erythema, swelling, tenderness of any joints. No edema of BLE. DP pulses +2/3 b/l. Full active ROM of all four extremities. Neurologic: NEURO: Oriented x3, cranial nerves II to XII grossly intact. Cerebellar exam (hqnclp-nj-guvd, vduw-dl-rmsg) intact. Muscle strength 5/5 on UE and LE b/l, Moves extremities x4. Sensation intact to gross touch along C6-T1 and L2-S1 dermatomes. No focal neurologic deficits noted Psych: Thoughts linear and responses appropriate. Exam Vital Signs Temp Pulse Resp BP Pulse Ox O2 Del Method O2 Flow Rate 97.0 F 95 20 175/103 H 95 Room Air 2 12/26/24 08:00 12/26/24 08:47 12/26/24 08:00 12/26/24 08:47 12/26/24 08:00 12/26/24 08:00 12/26/24 00:00 FiO2 88 12/26/24 00:00 Results Labs 12/28/24 05:40 12/28/24 05:40 Labs: Short CBC 12/26/24 Range/Units 04:37 WBC 9.3 (3.8-10.6) Thou/mm3 Hgb 12.9 L (13.5-16.0) g/dL Hct 39.1 L (41.0-53.0) % Plt Count 281 (140-440) Thou/mm3 Liver Function 12/26/24 Range/Units 04:37 Total Bilirubin 0.7 D (0.3-1.2) mg/dL Direct Bilirubin 0.3 (0.0-0.3) mg/dL AST 102 H (0-34) U/L ALT 196 H (10-49) U/L Alkaline Phosphatase 197 H (46-116) U/L Albumin 3.8 (3.4-4.8) gm/dL Quality Measures Quality Measures none Medications Home Medications and Allergies Home Medications ?Medication ?Instructions ?Recorded ?Confirmed ?Type moxifloxacin 0.5 % eye drops 1 drp Both eyes QDAY 12/25/24 12/26/24 History prednisolone acetate 1 % eye 1 drp ophthalmic (eye) Q12H 12/25/24 12/26/24 History drops,suspension amlodipine 5 mg tablet 5 mg PO QDAY 12/26/24 12/26/24 History Allergies Allergy/AdvReac Type Severity Reaction Status Date / Time No Known Allergies Allergy Verified 12/24/24 21:32 Visit Medications Acetaminophen (Acetaminophen 325 Mg Tablet) 650 mg PO Q6HR PRN PRN Reason: FEVER>101.5 Stop: 01/23/25 22:58 Amlodipine Besylate (Amlodipine Besylate 5 Mg Tablet) 5 mg PO QDAY SHASTA Stop: 01/25/25 08:59 Last Admin: 12/26/24 08:47 Dose: 5 mg Sodium Chloride (Ns) 1,000 mls @ 125 mls/hr IV .Q8H SHASTA Stop: 01/23/25 22:58 Last Admin: 12/26/24 06:20 Dose: 125 mls/hr Piperacillin/Tazobactam/Dextrose (Zosyn) 3.375 gm in 50 mls @ 12.5 mls/hr IV Q8HR SHASTA; Protocol Stop: 12/31/24 23:14 Last Admin: 12/26/24 05:19 Dose: 12.5 mls/hr Ketorolac Tromethamine (Ketorolac Inj 30 Mg/Ml Vial) 30 mg IVP Q6HR PRN; Protocol PRN Reason: PAIN 1-6 (mild-mod Stop: 12/29/24 22:58 Last Admin: 12/26/24 05:17 Dose: 30 mg Morphine Sulfate (Morphine Sulf Inj 10 Mg/Ml Vial) 5 mg IVP Q4HR PRN; Protocol PRN Reason: PAIN SCALE 4-6 (Moderate Stop: 12/29/24 22:58 Last Admin: 12/25/24 17:01 Dose: 5 mg Ondansetron HCl (Ondansetron Inj 2 Mg/Ml Inj 2 Ml) 4 mg IVP Q4HR PRN PRN Reason: NAUSEA OR VOMITING Stop: 01/23/25 22:58 Last Admin: 12/25/24 16:55 Dose: 4 mg Discontinued Medications Acetaminophen (Acetaminophen 325 Mg Tablet) 650 mg PO Q6HR PRN PRN Reason: [id number] Stop: 01/23/25 22:58 Fentanyl Citrate (Fentanyl Cit Inj 50 Mcg/Ml Amp 2ml) 50 mcg IVP Q5M PRN PRN Reason: PAIN SCALE 4-10(Mod-Sev Last Admin: 12/24/24 21:57 Dose: 50 mcg Hydralazine HCl (Hydralazine Inj 20 Mg/Ml Vial) 5 mg IVP Q20M PRN PRN Reason: SEE COMMENTS Sodium Chloride (Ns) 1,000 mls @ 500 mls/hr IV .Q2H SHASTA Stop: 01/23/25 17:29 Piperacillin Sod/Tazobactam (Sod 4.5 gm/ Sodium Chloride) 100 mls @ 200 mls/hr IV X1 ONE Stop: 12/24/24 17:59 Last Admin: 12/24/24 17:42 Dose: 200 mls/hr Sodium Chloride (Ns) 1,000 mls @ 999 mls/hr IV .Q1H1M ONE Stop: 12/24/24 18:34 Last Admin: 12/24/24 17:43 Dose: 999 mls/hr Labetalol HCl (Labetalol Inj 5 Mg/Ml Vial 20 Ml) 10 mg IVP X1 ONE Stop: 12/26/24 05:05 Meperidine HCl (Meperidine Inj 50 Mg/Ml Vial) 12.5 mg IVP Q5M PRN PRN Reason: SHIVERING Stop: 12/29/24 21:09 Metoprolol Tartrate (Metoprolol Tartrate Inj 1 Mg/Ml Amp 5 Ml) 1 mg IVP Q5M PRN PRN Reason: TACHYCARDIA Stop: 12/25/24 21:09 Midazolam HCl (Midazolam Inj 1 Mg/Ml Vial 2 Ml) 1 mg IVP Q5M PRN PRN Reason: ANXIETY Stop: 12/25/24 21:09 Morphine Sulfate (Morphine Sulf Inj 10 Mg/Ml Vial) 2 mg IVP X1 ONE Stop: 12/24/24 12:27 Last Admin: 12/24/24 13:21 Dose: 2 mg Morphine Sulfate (Morphine Sulf Inj 10 Mg/Ml Vial) 2 mg IVP Q10M PRN PRN Reason: PAIN SCALE 4-10(Mod-Sev Ondansetron HCl (Ondansetron Inj 2 Mg/Ml Inj 2 Ml) 4 mg IVP X1 PRN PRN Reason: NAUSEA OR VOMITING Assessment & Plan Plan #Hypertension BP 175/103 in AM. Patient has a baseline of SBP 135-160 Resumed home amlodipine 5mg and added additional 2.5mg x2 through the day watching for hypotension. Continue with 10mg amlodipine dose daily. IM team will be monitoring patient's BP. #s/p cholecystectomy POD 2 #hx of cholecystitis #post-op ileus Abdominal x-ray showed SBO and ileus on PE abdomen is ditended, non tender to palpation, bowel sounds diminished throughout Abdominal distension improving after NGT decompression managed by surgical team This case was discussed with my attending physician, Dr. Morrison, and senior resident Dr Mueller. Chas Dominguez DO PGY I Attending Provider Attestation/Addendum I have discussed and was present for the essential components of the history, physical examination, diagnosis, and treatment plan with the resident. I agree with the patient's care as documented by the resident and amended herein by me. Fernando Morrison DO. Although this document has been carefully reviewed, there may still be some phonetic and other typographical errors. These errors are purely grammatical due to imperfections in the software program and should not be construed in any way to compromise the substance of the patient's medical care during this visit. Will resume the patient's home amlodipine for now and uptitrate as necessary. May also add on a second agent if blood pressure remains refractory high. Per the patient's daughter, his BP is labile at home with significant drops which is to a low dose of amlodipine which we are cognizant of. Patient is not in any pain so I do not think that is contributing however we will continue to monitor and adjust medication as necessary. We appreciate the opportunity to participate in the care and management of this patient.
--- NOTE | 2024-12-26 11:45 | PC.NURSE ---
Made Md Zuleta aware of pts current bp 136/101-102 HR. No new orders given per will come see pt soon.
[2024-12-26] MEDS: DEXTROSE 5%-NS 1,000 ML 80 ML IV (15:03)
--- NOTE | 2024-12-26 15:50 | PC.NURSE ---
Made MD lui aware of pts continuos high blood pressures in the 160s systolic 100 diastolic. per MD would like to keep a small dose of amlodipine on board and assess bp closely due to history of sudden hypertension and sensitivity to bp meds according to pt and daughter. Pt denies any chest pain, sob or headaches at this time. Pt comfortable in bed at this time.
--- NOTE | 2024-12-26 16:12 | ESPR_ITS ---
Documentation for date of: 12/26/24 Subjective Subjective Brief History: History of present illness revealed that the patient was in his usual health until a week ago when he started having pain over the right side of the abdomen. He denies any vomiting but is not been feeling good. But he has been working and does not bother to see a doctor. He does not go to your doctor. He has history of hypertension. [facility] the [facility] found to have acute cholecystitis with cholelithiasis. Patient denies any major medical problems in the past and has been reasonably healthy. He lives alone. He denies any history of fever or jaundice or chills. He has noticed a diarrhea in the past few days. Per surgery consent of some eye surgery probably cataract Narrative: The patient developed abdominal distention and therefore NG tube was inserted last night. After decompression he is feeling better Exam Vital Signs Temp Pulse Resp BP Pulse Ox O2 Del Method O2 Flow Rate 97.4 F 90 16 163/110 H 92 L Room Air 2 12/26/24 12:00 12/26/24 12:45 12/26/24 12:45 12/26/24 12:29 12/26/24 12:45 12/26/24 12:00 12/26/24 12:45 FiO2 88 12/26/24 00:00 Vital signs reviewed elevated blood pressure with 163/110 Routine Abdominal Exam Comments: Abdomen this morning is less distended and patient is starting to pass flatus Results Results: Laboratory Laboratory Narrative: Laboratory results show improvement in the liver enzymes Assessment & Plan Assessment Additional comments: Postoperative ileus following laparoscopic cholecystectomy Plan Plan: We shall DC Jona-Varner which is draining no fluid We will DC NG tube and start him on clear liquids PROCEDURES: Procedures Laparoscopic cholecystectomy
--- NOTE | 2024-12-26 16:37 | PC.NURSE ---
Dr Carver at bedside removed dennise drain without any issues pt tolerated well.
[2024-12-27] VITALS (10 sets, daily range): BP systolic 150–163; BP diastolic 85–99; PULSE 75–102; RESP 16–96; TEMP 36.3–36.9; O2SAT 92–95; BMI 34.6
[2024-12-27] MEDS: DEXTROSE 5%-NS 1,000 ML 80 ML IV ×2 (02:33→21:11)
[2024-12-27] MEDS: PIPER/TAZO 3.375 GM PREMIX 3.375 GM/50 ML BAG IV ×3 (05:08→21:11)
[2024-12-27 05:29] LABS: Basophils # (Auto) 0.1 Thou/mm3 (0.0-0.2); Basophils % (Auto) 2 % (0-2.5); Eosinophils # (Auto) 0.3 Thou/mm3 (0.0-0.5); Eosinophils % (Auto) 4 % (0-10); Hematocrit 38.2 % (41.0-53.0); Hemoglobin 13.1 g/dL (13.5-16.0); Immature Granulocytes Auto 0.31 Thou/mm3 (0.00-0.00); Lymphocytes # (Auto) 1.9 Thou/mm3 (1.0-4.8); Lymphocytes % (Auto) 27 % (10-50); Mean Corpuscular HGB Conc 34.3 g/dl (31.0-37.0); Mean Corpuscular Hemoglobin 29.1 pg (25.0-35.0); Mean Corpuscular Volume 85 fL (80-100); Monocytes # (Auto) 0.8 Thou/mm3 (0.0-0.8); Monocytes % (Auto) 11 % (0-12); Neutrophils # (Auto) 3.7 Thou/mm3 (1.8-7.7); Neutrophils % (Auto) 52 % (37-80); Nucleated Red Blood Cell # 0.00 Thou/mm3 (0.00-0.00); Nucleated Red Blood Cell % 0 /100 WBC (0); Platelet Count 270 Thou/mm3 (140-440); RDW Standard Deviation 40.9 fL (35.1-43.9); Red Blood Count 4.50 Miln/mm3 (4.50-5.90); White Blood Count 7.1 Thou/mm3 (3.8-10.6)
[2024-12-27 06:16] LABS: Alanine Aminotransferase 145 U/L (10-49); Albumin, Serum 3.8 gm/dL (3.4-4.8); Albumin/Globulin Ratio 1.5 (1.2-2.2); Alkaline Phosphatase 155 U/L (46-116); Anion Gap 11 (7-16); Aspartate Amino Transferase 54 U/L (0-34); BUN/Creatinine Ratio 11 Ratio (12-20); Bilirubin,Total 0.5 mg/dL (0.3-1.2); Blood Urea Nitrogen 10 mg/dL (9-23); Calcium 8.7 mg/dL (8.3-10.6); Calcium (Corrected) 8.9 mg/dL (8.5-10.1); Carbon Dioxide 25.2 mMol/L (20.0-31.0); Chloride 104 mMol/L (98-107); Creatinine (Component) 0.9 mg/dL (0.6-1.3); Estimated Creatinine Clearance 106.9 mL/min (>60); Globulin 2.6 gm/dL (2.3-3.5); Glucose 124 mg/dL (74-106); Magnesium 2.2 mg/dL (1.6-2.6); Osmolality,Calculated 279 (275-295); Phosphorous 2.9 mg/dL (2.4-5.1); Potassium 3.6 mMol/L (3.4-5.1); Sodium 140 mMol/L (136-145); Total Protein 6.4 gm/dL (5.7-8.2); eGFR > 60 See Note
--- NOTE | 2024-12-27 11:49 | PD.RESPRO ---
Documentation for date of: 12/27/24 Exam Vital Signs Temp Pulse Resp BP Pulse Ox O2 Del Method O2 Flow Rate 97.4 F 82 16 162/97 H 92 L Room Air 2 12/27/24 08:00 12/27/24 09:49 12/27/24 09:49 12/27/24 08:38 12/27/24 08:00 12/27/24 08:00 12/26/24 12:45 FiO2 88 12/26/24 00:00 Objective Labs 12/27/24 04:15 12/27/24 04:15 Labs: Laboratory Results - last 24 hr 12/27/24 04:15 WBC 7.1 RBC 4.50 Hgb 13.1 L Hct 38.2 L MCV 85 MCH 29.1 MCHC 34.3 RDW Std Deviation 40.9 Plt Count 270 Neut % (Auto) 52 Lymph % (Auto) 27 Catron % (Auto) 11 Eos % (Auto) 4 Baso % (Auto) 2 Neut # (Auto) 3.7 Lymph # (Auto) 1.9 Catron # (Auto) 0.8 Eos # (Auto) 0.3 Baso # (Auto) 0.1 Immature Gran # (Auto) 0.31 H Absolute Nucleated RBC 0.00 Immature Gran % 4 H Nucleated RBC % 0 Sodium 140 Potassium 3.6 D Chloride 104 Carbon Dioxide 25.2 Anion Gap 11 BUN 10 Creatinine 0.9 Estim Creat Clear Calc 106.9 eGFR > 60 BUN/Creatinine Ratio 11 L Glucose 124 H Calculated Osmolality 279 Calcium 8.7 Corrected Calcium 8.9 Phosphorus 2.9 Magnesium 2.2 Total Bilirubin 0.5 AST 54 H ALT 145 H Alkaline Phosphatase 155 H D Total Protein 6.4 Albumin 3.8 Globulin 2.6 Albumin/Globulin Ratio 1.5 Quality Measures Quality Measures none Assessment & Plan Assessment Current Active Medications: Generic Name Dose Route Start Last Admin Trade Name Freq PRN Reason Stop Dose Admin Acetaminophen 650 mg 12/26/24 08:08 Acetaminophen 325 Mg Tablet PO 01/23/25 22:58 Q6HR PRN FEVER>101.5 Amlodipine Besylate 10 mg 12/27/24 09:00 12/27/24 08:38 Amlodipine Besylate 5 Mg Tablet PO 01/26/25 08:59 10 mg QDAY SHASTA Administration Sodium Chloride 1,000 mls @ 125 mls/hr 12/24/24 22:59 12/26/24 06:20 Ns IV 01/23/25 22:58 125 mls/hr .Q8H SHASTA Administration Piperacillin/Tazobactam/Dextrose 3.375 gm in 50 mls @ 12.5 mls/hr 12/24/24 23:15 12/27/24 05:08 Zosyn IV 12/31/24 23:14 12.5 mls/hr Q8HR SHASTA Administration Protocol Dextrose/Sodium Chloride 1,000 mls @ 80 mls/hr 12/26/24 11:15 12/27/24 02:33 D5-Ns IV 01/25/25 11:14 80 mls/hr .[id number] SHASTA Administration Ketorolac Tromethamine 30 mg 12/24/24 22:59 12/26/24 05:17 Ketorolac Inj 30 Mg/Ml Vial IVP 12/29/24 22:58 30 mg Q6HR PRN Administration PAIN 1-6 (mild-mod Protocol Morphine Sulfate 5 mg 12/24/24 22:59 12/25/24 17:01 Morphine Sulf Inj 10 Mg/Ml Vial IVP 12/29/24 22:58 5 mg Q4HR PRN Administration PAIN SCALE 4-6 (Moderate Protocol Ondansetron HCl 4 mg 12/24/24 22:59 12/25/24 16:55 Ondansetron Inj 2 Mg/Ml Inj 2 Ml IVP 01/23/25 22:58 4 mg Q4HR PRN Administration NAUSEA OR VOMITING Attending Provider Attestation/Addendum I have discussed and was present for the essential components of the history, physical examination, diagnosis, and treatment plan with the resident. I agree with the patient's care as documented by the resident and amended herein by me. Fernando Morrison DO. Although this document has been carefully reviewed, there may still be some phonetic and other typographical errors. These errors are purely grammatical due to imperfections in the software program and should not be construed in any way to compromise the substance of the patient's medical care during this visit. Patient seen and evaluated this AM. No acute events overnight, vital signs stable, patient afebrile. We have been consulted for hypertension management of this patient. Still in the 160-170s overnight, patient on amlodipine 10 however will start on lisinopril 10 mg daily today and uptitrate as necessary. Per the patient's daughter, his BP is labile at home however we have not seen that here as of yet. Will continue to monitor closely and uptitrate BP meds as appropriate.
--- NOTE | 2024-12-27 14:18 | ESCONSULT_ITS ---
HPI Data of Consult Requesting Physician: Deb Ramirez MD Admitting Provider: Deb Ramirez MD Attending Provider: Deb Ramirez MD Primary Care Provider: Physician No Primary/Family Consult Narrative History of present illness: Parker Conner is a 59 yo male with PMHx of hypertension and prior cholecystitis who is s/p cholecystectomy POD 3 and is being hospitalized for recovery after surgery and regain of bowel function. Internal medicine team was consulted for the management of stage 2 hypertension. Patient was initiated on his home dose of amlodipine 5 mg in the morning yesterday, with subsequent addition of 2.5 mg x 2 through the day. Patient received 10 mg of amlodipine this morning. BP 160/99 in a.m. furthermore, lisinopril 5 mg was added to his antihypertension regiment in early afternoon in the face of persistently high blood pressures >150. Patient denies symptoms associated with hypertension, including headache blurry vision, epistaxis, tinnitus, shortness of breath, chest pain, palpitations. Of note, patient had been constipated post surgery and had his first bowel movement this morning. cc:: cc: Deb Ramirez MD Review of Systems Review of Systems Narrative Review of Systems: General: Alert and oriented x3, No apparent distress. Skin: Intact, Warm, no rashes. HEENT: Normocephalic, Atraumatic. Normal neck range of motion, Supple. Trachea midline. Respiratory: Lungs are clear to auscultation, Breath sounds are equal bilaterally with equal chest expansion. Cardiovascular: RRR, normal S1, S2, No murmurs. Distal pulses 2+ Abdomen: Abdomen distended, soft, without erythema, or lesions. Diminished bowel sounds. Percussion tympanic. Palpation nontender in all four quadrants. No organomagely. No guarding or rebound present. Musculoskeletal/Extremities: No erythema, swelling, tenderness of any joints. No edema of BLE. DP pulses +2/3 b/l. Full active ROM of all four extremities. Neurologic: NEURO: Oriented x3, cranial nerves II to XII grossly intact. Cerebellar exam (whxzna-rf-jnig, uvse-um-tsva) intact. Muscle strength 5/5 on UE and LE b/l, Moves extremities x4. Sensation intact to gross touch along C6-T1 and L2-S1 dermatomes. No focal neurologic deficits noted Psych: Thoughts linear and responses appropriate. Exam Vital Signs Temp Pulse Resp BP Pulse Ox O2 Del Method O2 Flow Rate 97.6 F 102 H 17 163/98 H 93 L Room Air 2 12/27/24 12:00 12/27/24 13:28 12/27/24 12:00 12/27/24 13:28 12/27/24 12:00 12/27/24 12:00 12/26/24 12:45 FiO2 88 12/26/24 00:00 Results Labs 12/28/24 05:40 12/28/24 05:40 Labs: Short CBC 12/27/24 Range/Units 04:15 WBC 7.1 (3.8-10.6) Thou/mm3 Hgb 13.1 L (13.5-16.0) g/dL Hct 38.2 L (41.0-53.0) % Plt Count 270 (140-440) Thou/mm3 BMP 12/27/24 04:15 Sodium 140 Potassium 3.6 D Chloride 104 Carbon Dioxide 25.2 BUN 10 Creatinine 0.9 Glucose 124 H Calcium 8.7 Liver Function 12/27/24 Range/Units 04:15 Total Bilirubin 0.5 (0.3-1.2) mg/dL AST 54 H (0-34) U/L ALT 145 H (10-49) U/L Alkaline Phosphatase 155 H D (46-116) U/L Albumin 3.8 (3.4-4.8) gm/dL Quality Measures Quality Measures none Medications Home Medications and Allergies Home Medications ?Medication ?Instructions ?Recorded ?Confirmed ?Type moxifloxacin 0.5 % eye drops 1 drp Both eyes QDAY 12/0312/26/24 History prednisolone acetate 1 % eye 1 drp ophthalmic (eye) Q1 2H 12/25/24 12/26/24 History drops,suspension amlodipine 5 mg tablet 5 mg PO QDAY 12/26/24 History Allergies Allergy/AdvReac Type Severity Reaction Status Date / Time No Known Allergies Allergy Verified 12/24/24 21:32 Visit Medications Acetaminophen (Acetaminophen 325 Mg Tablet) 650 mg PO Q6HR PRN PRN Reason: FEVER>101.5 Stop: 01/23/25 22:58 Amlodipine Besylate (Amlodipine Besylate 5 Mg Tablet) 10 mg PO QDAY [facility] Stop: 01/26/25 08:59 Last Admin: 12/27/24 08:38 Dose: 10 mg Sodium Chloride (Ns) 1,000 mls @ 125 mls/hr IV .Q8H [facility] Stop: 01/23/25 22:58 Last Admin: 12/26/24 06:20 Dose: 125 mls/hr Piperacillin/Tazobactam/Dextrose (Zosyn) 3.375 gm in 50 mls @ 12.5 mls/hr IV Q8HR [facility]; Protocol Stop: 12/31/24 23:14 Last Admin: 12/27/24 13:28 Dose: 12.5 mls/hr Dextrose/Sodium Chloride (D5-Ns) 1,000 mls @ 80 mls/hr IV .[id number] [facility] Stop: 01/25/25 11:14 Last Admin: 12/27/24 02:33 Dose: 80 mls/hr Ketorolac Tromethamine (Ketorolac Inj 30 Mg/Ml Vial) 30 mg IVP Q6HR PRN; Protocol PRN Reason: PAIN 1-6 (mild-mod Stop: 12/29/24 22:58 Last Admin: 12/26/24 05:17 Dose: 30 mg Lisinopril (Lisinopril 2.5 Mg Tablet) 5 mg PO QDAY [facility] Stop: 01/26/25 12:44 Last Admin: 12/27/24 13:28 Dose: 5 mg Morphine Sulfate (Morphine Sulf Inj 10 Mg/Ml Vial) 5 mg IVP Q4HR PRN; Protocol PRN Reason: PAIN SCALE 4-6 (Moderate Stop: 12/29/24 22:58 Last Admin: 12/25/24 17:01 Dose: 5 mg Ondansetron HCl (Ondansetron Inj 2 Mg/Ml Inj 2 Ml) 4 mg IVP Q4HR PRN PRN Reason: NAUSEA OR VOMITING Stop: 01/23/25 22:58 Last Admin: 12/25/24 16:55 Dose: 4 mg Discontinued Medications Acetaminophen (Acetaminophen 325 Mg Tablet) 650 mg PO Q6HR PRN PRN Reason: [id number] Stop: 01/23/25 22:58 Amlodipine Besylate (Amlodipine Besylate 5 Mg Tablet) 5 mg PO QDAY [facility] Stop: 01/25/25 08:59 Last Admin: 12/26/24 08:47 Dose: 5 mg Amlodipine Besylate (Amlodipine Besylate 2.5 Mg Tablet) 2.5 mg PO X1 ONE Stop: 12/26/24 12:00 Last Admin: 12/26/24 12:29 Dose: 2.5 mg Amlodipine Besylate (Amlodipine Besylate 2.5 Mg Tablet) 2.5 mg PO X1 ONE Stop: 12/26/24 20:19 Last Admin: 12/26/24 20:31 Dose: 2.5 mg Amlodipine Besylate (Amlodipine Besylate 5 Mg Tablet) 5 mg PO BID [facility] Stop: 01/26/25 08:59 Fentanyl Citrate (Fentanyl Cit Inj 50 Mcg/Ml Amp 2ml) 50 mcg IVP Q5M PRN PRN Reason: PAIN SCALE 4-10(Mod-Sev Last Admin: 12/24/24 21:57 Dose: 50 mcg Hydralazine HCl (Hydralazine Inj 20 Mg/Ml Vial) 5 mg IVP Q20M PRN PRN Reason: SEE COMMENTS Sodium Chloride (Ns) 1,000 mls @ 500 mls/hr IV .Q2H [facility] Stop: 01/23/25 17:29 Piperacillin Sod/Tazobactam (Sod 4.5 gm/ Sodium Chloride) 100 mls @ 200 mls/hr IV X1 ONE Stop: 12/24/24 17:59 Last Admin: 12/24/24 17:42 Dose: 200 mls/hr Sodium Chloride (Ns) 1,000 mls @ 999 mls/hr IV .Q1H1M ONE Stop: 12/24/24 18:34 Last Admin: 12/24/24 17:43 Dose: 999 mls/hr Labetalol HCl (Labetalol Inj 5 Mg/Ml Vial 20 Ml) 10 mg IVP X1 ONE Stop: 12/26/24 05:05 Meperidine HCl (Meperidine Inj 50 Mg/Ml Vial) 12.5 mg IVP Q5M PRN PRN Reason: SHIVERING Stop: 12/29/24 21:09 Metoprolol Tartrate (Metoprolol Tartrate Inj 1 Mg/Ml Amp 5 Ml) 1 mg IVP Q5M PRN PRN Reason: TACHYCARDIA Stop: 12/25/24 21:09 Midazolam HCl (Midazolam Inj 1 Mg/Ml Vial 2 Ml) 1 mg IVP Q5M PRN PRN Reason: ANXIETY Stop: 12/25/24 21:09 Morphine Sulfate (Morphine Sulf Inj 10 Mg/Ml Vial) 2 mg IVP X1 ONE Stop: 12/24/24 12:27 Last Admin: 12/24/24 13:21 Dose: 2 mg Morphine Sulfate (Morphine Sulf Inj 10 Mg/Ml Vial) 2 mg IVP Q10M PRN PRN Reason: PAIN SCALE 4-10(Mod-Sev Ondansetron HCl (Ondansetron Inj 2 Mg/Ml Inj 2 Ml) 4 mg IVP X1 PRN PRN Reason: NAUSEA OR VOMITING Assessment & Plan Plan #Hypertension BP 160/99 in AM. Patient has a baseline of SBP 135-160 Resumed home amlodipine 5mg and added additional 2.5mg x2 through the day watching for hypotension. On 27 December, in the face of persistently high blood pressures, lisinopril 5 mg was added. Continue with 10mg amlodipine + lisinopril 5mg daily. IM team will be monitoring patient's BP. #s/p cholecystectomy POD 2 #hx of cholecystitis #post-op ileus, resolved Abdominal x-ray showed SBO and ileus post lap cholecystectomy. on PE abdomen is ditended, non tender to palpation, bowel sounds diminished throughout Abdominal distension improving after NGT decompression, large BM this AM. managed by surgical team This case was discussed with my attending physician, Dr. Morrison, and senior resident Dr Mueller. Chas Dominguez DO PGY I Attending Provider Attestation/Addendum I have discussed and was present for the essential components of the history, physical examination, diagnosis, and treatment plan with the resident. I agree with the patient's care as documented by the resident and amended herein by me. Fernando Morrison DO. Although this document has been carefully reviewed, there may still be some phonetic and other typographical errors. These errors are purely grammatical due to imperfections in the software program and should not be construed in any way to compromise the substance of the patient's medical care during this visit.
[2024-12-28] VITALS: BP 128/89; PULSE 85; RESP 17; TEMP 36.2; O2SAT 93
[2024-12-28 04:00] VITALS: BP 131/79; PULSE 73; RESP 18; TEMP 36.3; O2SAT 94
[2024-12-28] MEDS: PIPER/TAZO 3.375 GM PREMIX 3.375 GM/50 ML BAG IV (05:04)
[2024-12-28 06:15] LABS: Basophils # (Auto) 0.1 Thou/mm3 (0.0-0.2); Basophils % (Auto) 1 % (0-2.5); Eosinophils # (Auto) 0.3 Thou/mm3 (0.0-0.5); Eosinophils % (Auto) 3 % (0-10); Hematocrit 39.9 % (41.0-53.0); Hemoglobin 13.5 g/dL (13.5-16.0); Immature Granulocytes Auto 0.29 Thou/mm3 (0.00-0.00); Lymphocytes # (Auto) 2.1 Thou/mm3 (1.0-4.8); Lymphocytes % (Auto) 27 % (10-50); Mean Corpuscular HGB Conc 33.8 g/dl (31.0-37.0); Mean Corpuscular Hemoglobin 29.1 pg (25.0-35.0); Mean Corpuscular Volume 86 fL (80-100); Monocytes # (Auto) 0.8 Thou/mm3 (0.0-0.8); Monocytes % (Auto) 10 % (0-12); Neutrophils # (Auto) 4.3 Thou/mm3 (1.8-7.7); Neutrophils % (Auto) 55 % (37-80); Nucleated Red Blood Cell # 0.00 Thou/mm3 (0.00-0.00); Nucleated Red Blood Cell % 0 /100 WBC (0); Platelet Count 324 Thou/mm3 (140-440); RDW Standard Deviation 40.7 fL (35.1-43.9); Red Blood Count 4.64 Miln/mm3 (4.50-5.90); White Blood Count 7.9 Thou/mm3 (3.8-10.6)
[2024-12-28 06:33] LABS: Alanine Aminotransferase 112 U/L (10-49); Albumin, Serum 3.9 gm/dL (3.4-4.8); Albumin/Globulin Ratio 1.5 (1.2-2.2); Alkaline Phosphatase 128 U/L (46-116); Anion Gap 9 (7-16); Aspartate Amino Transferase 34 U/L (0-34); BUN/Creatinine Ratio 11 Ratio (12-20); Blood Urea Nitrogen 9 mg/dL (9-23); Calcium 9.7 mg/dL (8.3-10.6); Calcium (Corrected) 9.8 mg/dL (8.5-10.1); Carbon Dioxide 25.9 mMol/L (20.0-31.0); Chloride 104 mMol/L (98-107); Creatinine (Component) 0.8 mg/dL (0.6-1.3); Estimated Creatinine Clearance 120.3 mL/min (>60); Globulin 2.6 gm/dL (2.3-3.5); Glucose 111 mg/dL (74-106); Magnesium 2.0 mg/dL (1.6-2.6); Osmolality,Calculated 277 (275-295); Phosphorous 4.5 mg/dL (2.4-5.1); Potassium 3.6 mMol/L (3.4-5.1); Sodium 139 mMol/L (136-145); Total Protein 6.5 gm/dL (5.7-8.2); eGFR > 60 See Note
[2024-12-28 06:49] LABS: Bilirubin,Total 0.5 mg/dL (0.3-1.2)
[2024-12-28 08:00] VITALS: BP 142/94; PULSE 90; RESP 18; TEMP 36.4; O2SAT 95
[2024-12-28 08:28] VITALS: BP 142/94; PULSE 90
[2024-12-28 08:29] VITALS: BP 142/94; PULSE 90
--- NOTE | 2024-12-28 11:25 | ESPR_ITS ---
Documentation for date of: 12/28/24 Subjective Subjective Brief History: History of present illness revealed that the patient was in his usual health until a week ago when he started having pain over the right side of the abdomen. He denies any vomiting but is not been feeling good. But he has been working and does not bother to see a doctor. He does not go to your doctor. He has history of hypertension. Because of the increasing pain he came to the [facility] room and was found to have acute cholecystitis with cholelithiasis. Patient denies any major medical problems in the past and has been reasonably healthy. He lives alone. He denies any history of fever or jaundice or chills. He has noticed a diarrhea in the past few days. Per surgery consent of some eye surgery probably cataract Narrative: Patient is feeling much better and is tolerating a regular diet and has had bowel movements Exam Vital Signs Temp Pulse Resp BP Pulse Ox O2 Del Method O2 Flow Rate 97.5 F 90 18 142/94 H 95 Room Air 2 12/28/24 08:00 12/28/24 08:29 12/28/24 08:00 12/28/24 08:29 12/28/24 08:00 12/28/24 08:00 12/27/24 16:00 FiO2 88 12/26/24 00:00 His vital signs are normal and his blood pressure is under control Routine Abdominal Exam Comments: Abdominal examination is negative Results Results: Laboratory Laboratory Narrative: Laboratory results are normal Assessment & Plan Assessment Additional comments: Impression: Stable recovery following laparoscopic cholecystectomy Plan Plan: Will discharge him today on antibiotics and see him next week in my office PROCEDURES: Procedures Laparoscopic cholecystectomy
[2024-12-28 12:00] VITALS: BP 169/98; PULSE 87; RESP 18; TEMP 36.2; O2SAT 95
--- NOTE | 2024-12-28 13:07 | ESCONSULT_ITS ---
HPI Data of Consult Requesting Physician: Deb Ramirez MD Admitting Provider: Deb Ramirez MD Attending Provider: Deb Ramirez MD Primary Care Provider: Physician No Primary/Family Consult Narrative History of present illness: Parker Conner is a 59 yo male with PMHx of hypertension and prior cholecystitis who is s/p cholecystectomy POD 4 and is being hospitalized for recovery after surgery hypertension. Internal medicine team had been consulted for the management of stage 2 hypertension. Patient received 10 mg of amlodipine plus lisinopril 5mg this morning. Patient denies symptoms associated with hypertension, including headache blurry vision, epistaxis, tinnitus, shortness of breath, chest pain, palpitations. Of note, patient had been constipated post surgery and had 4 BM just yesterday. cc:: cc: Deb Ramirez MD Review of Systems Review of Systems Narrative Review of Systems: General: Alert and oriented x3, No apparent distress. Skin: Intact, Warm, no rashes. HEENT: Normocephalic, Atraumatic. Normal neck range of motion, Supple. Trachea midline. Respiratory: Lungs are clear to auscultation, Breath sounds are equal bilaterally with equal chest expansion. Cardiovascular: RRR, normal S1, S2, No murmurs. Distal pulses 2+ Abdomen: Abdomen distended, soft, without erythema, or lesions. Diminished bowel sounds. Percussion tympanic. Palpation nontender in all four quadrants. No organomagely. No guarding or rebound present. Musculoskeletal/Extremities: No erythema, swelling, tenderness of any joints. No edema of BLE. DP pulses +2/3 b/l. Full active ROM of all four extremities. Neurologic: NEURO: Oriented x3, cranial nerves II to XII grossly intact. Cerebellar exam (byeord-pe-ktpb, qteo-py-lnye) intact. Muscle strength 5/5 on UE and LE b/l, Moves extremities x4. Sensation intact to gross touch along C6-T1 and L2-S1 dermatomes. No focal neurologic deficits noted Psych: Thoughts linear and responses appropriate. Exam Vital Signs Temp Pulse Resp BP Pulse Ox O2 Del Method O2 Flow Rate 97.2 F 87 18 169/98 H 95 Room Air 2 12/28/24 12:12/28/24 12:12/28/24 12:12/28/24 12:00 12/28/24 12:00 12/28/24 12:00 12/27/24 16:00 FiO2 88 12/26/24 00:00 Narrative Exam Narrative Review of Systems: General: Alert and oriented x3, No apparent distress. Skin: Intact, Warm, no rashes. HEENT: Normocephalic, Atraumatic. Normal neck range of motion, Supple. Trachea midline. Respiratory: Lungs are clear to auscultation, Breath sounds are equal bilaterally with equal chest expansion. Cardiovascular: RRR, normal S1, S2, No murmurs. Distal pulses 2+ Abdomen: mild distension, soft, without erythema, or lesions. Normotensive bowel sounds x4. Percussion tympanic. Palpation nontender in all four quadrants. No organomagely. No guarding or rebound present. Musculoskeletal/Extremities: No erythema, swelling, tenderness of any joints. No edema of BLE. DP pulses +2/3 b/l. Full active ROM of all four extremities. Neurologic: NEURO: Oriented x3, cranial nerves II to XII grossly intact. Cerebellar exam (sojhyv-uc-ddev, xdct-ey-olpr) intact. Muscle strength 5/5 on UE and LE b/l, Moves extremities x4. Sensation intact to gross touch along C6-T1 and L2-S1 dermatomes. No focal neurologic deficits noted Psych: Thoughts linear and responses appropriate. Results Labs 12/28/24 05:40 12/28/24 05:40 Labs: Short CBC 12/28/24 Range/Units 05:40 WBC 7.9 (3.8-10.6) Thou/mm3 Hgb 13.5 (13.5-16.0) g/dL Hct 39.9 L (41.0-53.0) % Plt Count 324 D (140-440) Thou/mm3 BMP 12/28/24 05:40 Sodium 139 Potassium 3.6 Chloride 104 Carbon Dioxide 25.9 BUN 9 Creatinine 0.8 Glucose 111 H Calcium 9.7 Liver Function 12/28/24 Range/Units 05:40 Total Bilirubin 0.5 (0.3-1.2) mg/dL AST 34 (0-34) U/L ALT 112 H (10-49) U/L Alkaline Phosphatase 128 H D (46-116) U/L Albumin 3.9 (3.4-4.8) gm/dL Quality Measures Quality Measures none Medications Home Medications and Allergies Home Medications ?Medication ?Instructions ?Recorded ?Confirmed ?Type moxifloxacin 0.5 % eye drops 1 drp Both eyes QDAY 12/0312/26/24 History prednisolone acetate 1 % eye 1 drp ophthalmic (eye) Q1 2H 12/25/24 12/26/24 History drops,suspension amlodipine 5 mg tablet 5 mg PO QDAY 12/26/24 History Allergies Allergy/AdvReac Type Severity Reaction Status Date / Time No Known Allergies Allergy Verified 12/24/24 21:32 Visit Medications Acetaminophen (Acetaminophen 325 Mg Tablet) 650 mg PO Q6HR PRN PRN Reason: FEVER>101.5 Stop: 01/23/25 22:58 Amlodipine Besylate (Amlodipine Besylate 5 Mg Tablet) 10 mg PO QDAY [facility] Stop: 01/26/25 08:59 Last Admin: 12/28/24 08:29 Dose: 10 mg Sodium Chloride (Ns) 1,000 mls @ 125 mls/hr IV .Q8H [facility] Stop: 01/23/25 22:58 Last Admin: 12/26/24 06:20 Dose: 125 mls/hr Piperacillin/Tazobactam/Dextrose (Zosyn) 3.375 gm in 50 mls @ 12.5 mls/hr IV Q8HR [facility]; Protocol Stop: 12/31/24 23:14 Last Admin: 12/28/24 05:04 Dose: 12.5 mls/hr Dextrose/Sodium Chloride (D5-Ns) 1,000 mls @ 80 mls/hr IV .[id number] [facility] Stop: 01/25/25 11:14 Last Admin: 12/27/24 21:11 Dose: 80 mls/hr Ketorolac Tromethamine (Ketorolac Inj 30 Mg/Ml Vial) 30 mg IVP Q6HR PRN; Protocol PRN Reason: PAIN 1-6 (mild-mod Stop: 12/29/24 22:58 Last Admin: 12/26/24 05:17 Dose: 30 mg Lisinopril (Lisinopril 2.5 Mg Tablet) 5 mg PO QDAY [facility] Stop: 01/26/25 12:44 Last Admin: 12/28/24 08:28 Dose: 5 mg Morphine Sulfate (Morphine Sulf Inj 10 Mg/Ml Vial) 5 mg IVP Q4HR PRN; Protocol PRN Reason: PAIN SCALE 4-6 (Moderate Stop: 12/29/24 22:58 Last Admin: 12/25/24 17:01 Dose: 5 mg Ondansetron HCl (Ondansetron Inj 2 Mg/Ml Inj 2 Ml) 4 mg IVP Q4HR PRN PRN Reason: NAUSEA OR VOMITING Stop: 01/23/25 22:58 Last Admin: 12/25/24 16:55 Dose: 4 mg Discontinued Medications Acetaminophen (Acetaminophen 325 Mg Tablet) 650 mg PO Q6HR PRN PRN Reason: [id number] Stop: 01/23/25 22:58 Amlodipine Besylate (Amlodipine Besylate 5 Mg Tablet) 5 mg PO QDAY [facility] Stop: 01/25/25 08:59 Last Admin: 12/26/24 08:47 Dose: 5 mg Amlodipine Besylate (Amlodipine Besylate 2.5 Mg Tablet) 2.5 mg PO X1 ONE Stop: 12/26/24 12:00 Last Admin: 12/26/24 12:29 Dose: 2.5 mg Amlodipine Besylate (Amlodipine Besylate 2.5 Mg Tablet) 2.5 mg PO X1 ONE Stop: 12/26/24 20:19 Last Admin: 12/26/24 20:31 Dose: 2.5 mg Amlodipine Besylate (Amlodipine Besylate 5 Mg Tablet) 5 mg PO BID [facility] Stop: 01/26/25 08:59 Fentanyl Citrate (Fentanyl Cit Inj 50 Mcg/Ml Amp 2ml) 50 mcg IVP Q5M PRN PRN Reason: PAIN SCALE 4-10(Mod-Sev Last Admin: 12/24/24 21:57 Dose: 50 mcg Hydralazine HCl (Hydralazine Inj 20 Mg/Ml Vial) 5 mg IVP Q20M PRN PRN Reason: SEE COMMENTS Sodium Chloride (Ns) 1,000 mls @ 500 mls/hr IV .Q2H [facility] Stop: 01/23/25 17:29 Piperacillin Sod/Tazobactam (Sod 4.5 gm/ Sodium Chloride) 100 mls @ 200 mls/hr IV X1 [facility] Stop: 12/24/24 17:59 Last Admin: 12/24/24 17:42 Dose: 200 mls/hr Sodium Chloride (Ns) 1,000 mls @ 999 mls/hr IV .Q1H1M [facility] Stop: 12/24/24 18:34 Last Admin: 12/24/24 17:43 Dose: 999 mls/hr Labetalol HCl (Labetalol Inj 5 Mg/Ml Vial 20 Ml) 10 mg IVP X1 ONE Stop: 12/26/24 05:05 Meperidine HCl (Meperidine Inj 50 Mg/Ml Vial) 12.5 mg IVP Q5M PRN PRN Reason: SHIVERING Stop: 12/29/24 21:09 Metoprolol Tartrate (Metoprolol Tartrate Inj 1 Mg/Ml Amp 5 Ml) 1 mg IVP Q5M PRN PRN Reason: TACHYCARDIA Stop: 12/25/24 21:09 Midazolam HCl (Midazolam Inj 1 Mg/Ml Vial 2 Ml) 1 mg IVP Q5M PRN PRN Reason: ANXIETY Stop: 12/25/24 21:09 Morphine Sulfate (Morphine Sulf Inj 10 Mg/Ml Vial) 2 mg IVP X1 ONE Stop: 12/24/24 12:27 Last Admin: 12/24/24 13:21 Dose: 2 mg Morphine Sulfate (Morphine Sulf Inj 10 Mg/Ml Vial) 2 mg IVP Q10M PRN PRN Reason: PAIN SCALE 4-10(Mod-Sev Ondansetron HCl (Ondansetron Inj 2 Mg/Ml Inj 2 Ml) 4 mg IVP X1 PRN PRN Reason: NAUSEA OR VOMITING Assessment & Plan Plan #Hypertension BP 142-163/89-100 during the past 24h. Resumed home amlodipine 5mg and added additional 2.5mg x2 through the day watching for hypotension. On 27 December, in the face of persistently high blood pressures, lisinopril 5 mg was added. Continue with 10mg amlodipine + lisinopril 5mg daily. IM team will be monitoring patient's BP. #s/p cholecystectomy POD 3 #hx of cholecystitis #post-op ileus, resolved Abdominal x-ray showed SBO and ileus shortly after post lap cholecystectomy. [id number] on PE, abdomen is ditended mildly, non tender to palpation, normotensive bowel sounds present throughout. Percussion tympanic. Abdominal distension improving after NGT decompression, multiple BM. managed by surgical team This case was discussed with my attending physician, Dr. Morrison, and senior resident Dr Mueller. Chas Dominguez DO PGY I Attending Provider Attestation/Addendum I have discussed and was present for the essential components of the discharge history, physical examination, diagnosis, and discharge treatment plan with the resident. I agree with the patient's discharge care as documented by the resident and amended herein by me. Fernando Morrison DO. Blood pressure improved on amlodipine 10 mg daily as well as lisinopril 5 mg daily. Patient will need close follow-up with primary care provider to uptitrate BP meds and monitor as needed. Patient's daughter states he has been well-controlled on 5 mg of amlodipine at home and is very labile with his blood pressure however that was not noticed here. This was explained to the patient and his family, all questions answered satisfactorily. We appreciate the opportunity to participate in the care and management of this patient.
== END 2024-12-28 13:47 | disposition home or self-care (01) | DRG 263 ==
LOC: SERX 13:29 → SERHOLD 17:42 → S3NX 22:19
PROVIDERS: Physician Assistant Medical; Admitting Provider Surgery; Emergency Provider Emergency Medicine; Visit Provider Surgery
PROC: 0FT44ZZ Resection of Gallbladder, Percutaneous Endoscopic Approach (ICD-10-PCS; CPT 47562; principal; 2024-12-24 19:00)
DX: K80.00 Calculus of gallbladder with acute cholecystitis without obstruction (principal); I10 Essential (primary) hypertension; Z87.891 Personal history of nicotine dependence; E66.9 Obesity, unspecified; Z68.32 Body mass index [BMI] 32.0-32.9, adult; Z79.899 Other long term (current) drug therapy; K91.89 Other postprocedural complications and disorders of digestive system; K56.7 Ileus, unspecified; K82.8 Other specified diseases of gallbladder
CPT/HCPCS: 36415; 74018; 74177; 76705; 80051; 80053; 80076; 81001; 83605; 83690; 83735; 84100; 85025; 93005; 96374; 99284; A4217; A4649; J0131; J1100; J1885; J2270; J2371; J2405; J2543; J2598; J2704; J2710; J3010; J3490; J7030; J7042; Q9967; A9270; J1596; J1805